=== PATIENT | male | born 1960 | race Caucasian/White ===

== ENCOUNTER 2017-04-29 18:26 | Emergency (ER) | payer MEDICARE ==
--- NOTE | 2017-05-09 16:41 | ER ---
ADMIT: 04/29/2017 RM/LOC: ER [facility] MR#: [id number] [facility] [place], [place] [id number] JAYLEN BABB [address] [place] [address] NO PHONE Emergency Room Report SEX: M AGE: 56 : 1960 DATE: 04/29/2017 A 56-year-old, comes to the Emergency Department with several days worth of swelling of the left hand, left ankle. Denies any injury, says it is spontaneous. See T-sheet for history and physical. There is some mild swelling over the areas, no erythema. Range of motion is within normal limits. He does have a history of IV drug abuse, therefore, CBC and sedimentation rate were obtained, results of which were unremarkable. The patient is diagnosed with arthropathy, given a short burst of prednisone 40 mg for total of three days. Instructed to follow up with his primary doctor this week. Uri Allen MD/ cristi JOB #: [id number] CC: Mikhail Berry MD, Attending Physician Trino Catherine MD, Family Physician
== END 2017-04-29 20:35 | disposition home or self-care (01) ==
LOC: ER 18:26
DX: M12.9 Arthropathy, unspecified (principal); F17.210 Nicotine dependence, cigarettes, uncomplicated; I10 Essential (primary) hypertension; F31.9 Bipolar disorder, unspecified; Z90.49 Acquired absence of other specified parts of digestive tract; Z98.890 Other specified postprocedural states; Z90.81 Acquired absence of spleen; Z79.82 Long term (current) use of aspirin; Z79.899 Other long term (current) drug therapy